=== PATIENT | female | born 1995 | race Two or more races ===

== ENCOUNTER 2021-05-06 08:08 | Emergency (ER) | payer BC ==
[~2021-05-06] VITALS: Ht 154.9 cm; Wt 91.0 kg
[2021-05-06 08:44] VITALS: BP 160/98
[2021-05-06] MEDS ORDERED: SULF1TAB48 MT (09:03)
[2021-05-06] MEDS ORDERED: IBUP-2029 MT (09:03)
[2021-05-06] MEDS ORDERED: SULFAMETHOXAZOLE/TRIMETHOPRIM 800/160MG TABLET PO ONE (09:15)
== END 2021-05-06 09:30 | disposition home or self-care (01) ==
LOC: ER 08:08
DX: L03.032 Cellulitis of left toe (principal); L03.031 Cellulitis of right toe; Z79.899 Other long term (current) drug therapy
CPT/HCPCS: 81025; 99283